=== PATIENT | female | born 1955 | race African-American/Black ===

== ENCOUNTER 2016-08-27 21:43 | Emergency (ER) | payer BC, OTHER ==
[2016-08-27 22:10] VITALS: BP 171/113; PULSE 64; TEMP 98.6; BMI 25.3
--- NOTE | 2016-08-28 00:40 | PDOC ---
History of Present Illness - General History Source: Patient Exam Limitations: No Limitations - History of Present Illness Initial Comments: 08/28/16 00:59 Patient is a 60 year old female with a significant past medical history of hypertension and panic attacks (last was in her 30s) who presents to the ED with numbness to the bilateral hands, forearms and elbows and rapid heart rate. Patient states that she was at work as she developed numbness at both of her distal upper extremities. She states that she leaned back in her chair and put her feet up as she waited for EMS. Upon the arrival of EMS she was found to her 171/92 BP with rapid HR in 100s. Patient states that she was feeling lightheaded , her mouth was dry and there was tingling around the mouth. Patient denies any diaphoresis. She denies any recent stress increase. She states that she does not usually have coffee but had coffee this morning. Patient now reports a headache. <Maria Isabel Arambula - Last Filed: 08/28/16 00:59> <Rosa Mak - Last Filed: 08/28/16 02:05> - General Chief Complaint: Weakness Stated Complaint: WEAKNESS Past History <Maria Isabel Arambula - Last Filed: 08/28/16 00:59> - Past Medical History Hypercholesterolemia: Yes - Immunization History Immunization Up to Date: Yes - Psycho/Social/Smoking Cessation Hx Suicidal Ideation: No Smoking History: Never smoked Have you smoked in the past 12 months: No Information on smoking cessation initiated: No Hx Alcohol Use: No Drug/Substance Use Hx: No <Rosa Mak - Last Filed: 08/28/16 02:05> - Past Medical History Allergies/Adverse Reactions: Allergies Allergy/AdvReac Type Severity Reaction Status Date / Time No Known Allergies Allergy Verified 08/27/16 22:03 Review of Systems - Review of Systems Able to Perform ROS?: Yes Comments:: 08/28/16 00:59 GENERAL/CONSTITUTIONAL: (+)weakness. No fever or chills. HEAD, EYES, EARS, NOSE AND THROAT: No change in vision. No ear pain or discharge. No sore throat. GASTROINTESTINAL: No nausea, vomiting, diarrhea or constipation. GENITOURINARY: No dysuria, frequency, or change in urination. CARDIOVASCULAR: No chest pain or shortness of breath. RESPIRATORY: No cough, wheezing, or hemoptysis. MUSCULOSKELETAL: No joint or muscle swelling or pain. No neck or back pain. SKIN: No rash NEUROLOGIC: (+)headahce, (+)upper extremity numbness. No vertigo, loss of consciousness, or change in strength/sensation. ENDOCRINE: No increased thirst. No abnormal weight change. HEMATOLOGIC/LYMPHATIC: No anemia, easy bleeding, or history of blood clots. ALLERGIC/IMMUNOLOGIC: No hives or skin allergy. <Maria Isabel Arambula - Last Filed: 08/28/16 00:59> *Physical Exam - Vital Signs Last Vital Signs Temp Pulse Resp BP Pulse Ox 98.6 F 64 16 171/113 100 08/27/16 22:04 08/27/16 22:04 08/27/16 22:04 08/27/16 22:04 08/27/16 22:04 - Physical Exam Comments: 08/28/16 01:00 GENERAL: Awake, alert, and fully oriented, in no acute distress HEAD: No signs of trauma EYES: PERRLA, EOMI, sclera anicteric, conjunctiva clear ENT: Auricles normal inspection, nares patent, Moist mucosa NECK: Normal ROM, supple, no lymphadenopathy, JVD, or masses LUNGS: Breath sounds equal, clear to auscultation bilaterally. No wheezes, and no crackles HEART: Regular rate and rhythm, normal S1 and S2, no murmurs, rubs or gallops ABDOMEN: Soft, nontender, normoactive bowel sounds. No guarding, no rebound. No masses EXTREMITIES: (+)Left wrist positive tenales and finkelsteins. Normal range of motion, no edema. No clubbing or cyanosis. No cords, erythema. NEUROLOGICAL: 5/5 strength, Sensation intact, Normal speech SKIN: Warm, Dry, normal turgor, no rashes or lesions noted. <Maria Isabel Arambula - Last Filed: 08/28/16 00:59> - Vital Signs Last Vital Signs Temp Pulse Resp BP Pulse Ox 98.6 F 64 16 171/113 100 08/27/16 22:04 08/27/16 22:04 08/27/16 22:04 08/27/16 22:04 08/27/16 22:04 <Rosa Mak - Last Filed: 08/28/16 02:05> Heart Score/ECG Review #1 ECG reviewed & interpreted by me at: 01:05 General ECG Interpretation: Sinus Rhythm, Normal Rate (50 bpm), Normal Intervals , No acute ischemic changes <Rosa Mak - Last Filed: 08/28/16 02:05> ED Treatment Course - LABORATORY CBC & Chemistry Diagram: 08/28/16 01:30 08/28/16 01:30 <Rosa Mak - Last Filed: 08/28/16 02:05> Medical Decision Making - Medical Decision Making 08/28/16 00:36 60 yo F with h/o htn, prior anxiety ( no attack in over 30 yrs ) here with episode of feeling tingling bilat arms, elbows down, and perioral tingling. felt heart racing, no loc. felt lightheaded. put feet on desk, and leaned back, lasted 45 min, then resolved. no cp no sob. now at baseline. did not feel weakness, but felt like she couldnot move. no fever or chills. take vytorin for bp. no leg swelling., has noted left wrist forearm tingling and pain periodically. 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 on exam, awake alert NAD facies symmetric. lungs cTAB no wheeze no crackle. abd soft NT ND. nuero CN intact, 5/5 all four ext, sensation intact througout. left wrist positive tinels and kings test. differential: anxiety attack , hyperthyroid, electrolyte abnormality, anemia dehydration dysrhtymia. plan ekg labs tsh trop if normal likely dc home with outpt follow up. carpal tunnel recommend wrist splint. <Rosa Mak - Last Filed: 08/28/16 02:05> *DC/Admit/Observation/Transfer - Attestations Scribe Attestion: 08/28/16 01:01 Documentation prepared by DIONI Chan, acting as medical record retrieval specialist for Rosa Mak MD. <Maria Isabel Arambula - Last Filed: 08/28/16 00:59> <Rosa Mak - Last Filed: 08/28/16 02:05> Diagnosis at time of Disposition: Near syncope, Heart palpitations, Carpal tunnel syndrome of left wrist - Referrals Referrals: Ayleen Gomez MD [Primary Care Provider] - - Patient Instructions Printed Discharge Instructions: Carpal Tunnel Syndrome, DI for Palpitations Additional Instructions: you should follow up with Dr. Gomez, this week to discuss further testing. call to schedule. be sure to drink plenty of fluids. return for chest pain. shortness of breath or any concerns. wear a wrist splint ( which you can buy over the counter ) on left wrist. during work and at night to help symptoms related to carpal tunnel.
[2016-08-28] MEDS ORDERED: SODIUM CHLORIDE 0.9% 1000 ML INFUS.BAG IV ONE (00:41)
[2016-08-28 01:33] LABS: BASOPHIL 0.7 % (0-2.0); EOSINOPHIL 0.8 % (0-4.5); MCH 31.4 pg (25.7-33.7); MCHC 32.7 g/dl (32.0-36.0); MEAN CELL VOLUME 95.8 fl (80-96); MEAN PLT VOLUME 10.6 fl (7.5-11.1); NEUTROPHILS 46.4 % (42.8-82.8); PLATELET COUNT 143 K/MM3 (134-434); RDW 13.6 % (11.6-15.6); WHITE BLOOD COUNT 5.3 K/mm3 (4.0-10.0)
[2016-08-28 01:56] LABS: ALBUMIN 4.2 g/dl (3.4-5.0); ANION GAP 10 (8-16); BILIRUBIN,TOTAL 0.5 mg/dL (0.2-1.0); CALCIUM 10.5 mg/dL (8.5-10.1); CO2 28 mmol/L (21-32); CREATININE 0.7 mg/dL (0.55-1.02); GLUCOSE,RANDOM 92 mg/dL (74-106); SGPT/ALT 35 U/L (12-78); TOT PROT 8.1 g/dl (6.4-8.2)
[2016-08-28 01:57] LABS: ALK PHOS 145 U/L (45-117)
[2016-08-28 02:07] LABS: SGOT/AST 33 U/L (15-37)
--- NOTE | 2016-08-28 16:26 | EKG ---
Test Reason : Blood Pressure : / mmHG Vent. Rate : 050 BPM Atrial Rate : 050 BPM P-R Int : 190 ms QRS Dur : 082 ms QT Int : 434 ms P-R-T Axes : 063 002 034 degrees QTc Int : 395 ms SINUS BRADYCARDIA POSSIBLE LEFT ATRIAL ENLARGEMENT BORDERLINE ECG WHEN COMPARED WITH ECG OF 15-SEP-2001 08:55, NO SIGNIFICANT CHANGE WAS FOUND Confirmed by CHUCHO ZHOU MD ([id number]) on 08/28/2016 4:25:32 PM Referred By: Confirmed By:CHUCHO ZHOU MD
== END 2016-08-28 02:55 | disposition home or self-care (01) ==
LOC: JER 21:43
DX: R55 Syncope and collapse (principal); R00.2 Palpitations; G56.02 Carpal tunnel syndrome, left upper limb; F41.9 Anxiety disorder, unspecified; I10 Essential (primary) hypertension
CPT/HCPCS: 36415; 80053; 84443; 85025; 93005; 93010; 99283-25

== ENCOUNTER 2019-04-03 02:41 | Emergency (ER) | payer BC, OTHER ==
[2019-04-03] MEDS ORDERED: FUROSEMIDE 40 MG/4 ML INJECTABLE VIAL ONE (02:48)
[2019-04-03 02:59] VITALS: TEMP 97.7; BMI 25.2
--- NOTE | 2019-04-03 03:25 | PDOC ---
Attending Attestation - Resident Resident Name: JayleneHarvinder - HPI HPI: 04/03/19 06:56 PT presents to the ED complaining of hoarseness and a "tight" sensation in her throat that started acutely last night. patient describes some mild odontophagia, but states that she is able to tolerates solids and liquids and ate a full dinner last night. Denies fever. Patient is status post parathyroidectomy one month ago, but reports that she was asymptomatic until yesterday.
--- NOTE | 2019-04-03 03:55 | PDOC ---
History of Present Illness - General Chief Complaint: Shortness of Breath Stated Complaint: DIFF BREATHING Time Seen by Provider: 04/03/19 03:23 Past History - Past Medical History Allergies/Adverse Reactions: Allergies Allergy/AdvReac Type Severity Reaction Status Date / Time No Known Allergies Allergy Verified 08/27/16 22:03 Home Medications: Ambulatory Orders Ezetimibe/Simvastatin [Vytorin 10-20 mg Tablet] 1 tab PO DAILY 04/03/19 Fexofenadine HCl [Hawa Allergy] 180 mg PO PRN PRN 04/03/19 COPD: No Hypercholesterolemia: Yes - Immunization History Immunization Up to Date: Yes - Psycho Social/Smoking Cessation Hx Smoking History: Never smoked Have you smoked in the past 12 months: No Information on smoking cessation initiated: No Hx Alcohol Use: No Drug/Substance Use Hx: No *Physical Exam - Vital Signs Last Vital Signs Temp Pulse Resp BP Pulse Ox 97.7 F 63 20 166/89 100 04/03/19 02:55 04/03/19 02:55 04/03/19 02:55 04/03/19 02:55 04/03/19 02:55 ED Treatment Course - LABORATORY CBC & Chemistry Diagram: 04/03/19 04:10 04/03/19 04:10 Medical Decision Making - Medical Decision Making 04/03/19 04:51 HPI: 63yo F hx seasonal allergies, HLD, hyperparathyroidism s/p parathyroidectomy ( at [facility]), tinnitus (x3wks, started Hawa per ENT 3 days ago, last took yesterday), and bradycardia with SVT (single episode 2mo ago) presents from home c/o acute onset throat tightness, choking sensation worse when lying down, cough productive of clear mucus, sore throat, hoarse voice, and difficulty breathing 2/2 throat tightness, x8hrs. Pt had surgery on 03/07/19. No complications except for tinnitus approx 1wk post-surgery. Surgeon said not due to surgery. Pt f/u with ENT and given Hawa which started for first time 3 days ago, last took 04/01/18. No hx of allergies other than season. Sx had sudden onset at 2100 04/02/18 while resting in bed, but have remained unchanged since onset. Denies hx similar sx. Denies rash, face or tongue or lip swelling, pruritus, difficulty breathing from lungs. Pt is SOB but states it is all from the throat up, not originating from the lungs. Pt tolerating PO liquids and solids, no difficulty swallowing secretions. Pts last pill was approx 24hrs prior, no difficulty getting down. Denies anything getting stuck in throat or feeling of something stuck. Endorses 3 days of b/l LE cramping intermittent, same as cramping prior to surgery. Last labs checked 2 weeks ago normal. Denies fever, chills, fatigue, headache, dizziness, numbness/tingling, weakness, vision changes, chest pain, palpitations, leg swelling, abdominal pain, blood in stool, diarrhea, constipation, nausea, vomiting, dysuria, hematuria, confusion, hx DVT/PE, estrogen or hormone use, recent travel, sick contacts, hemoptysis, leg swelling. Surgeon - Dr Jesús Puckett [facility] Cardio - [facility] PCP - Ayleen Gomez ROS: Constitutional: Negative for chills, fever, fatigue, diaphoresis. HENT: Positive for sore throat, choking sensation, hoarse voice, tight throat. Negative for rhinorrhea, postnasal drip, congestion. Eyes: Negative for visual disturbance. Respiratory: Positive for shortness of breath, cough. Negative for shortness of breath, cough, and wheezing. Cardiovascular: Negative for chest pain, palpitations, and leg swelling. Gastrointestinal: Negative for abdominal pain, blood in stool, constipation, diarrhea, nausea, and vomiting. Genitourinary: Negative for dysuria, flank pain, and hematuria. Musculoskeletal: Negative for myalgias, back pain, and neck pain. Skin: Negative for rash. Neurological: Negative for light-headedness, dizziness, vertigo, syncope, weakness, numbness and headaches. Psychiatric/Behavioral: Negative for behavioral problems and confusion. PE: Gen: Alert, NAD, comfortable-appearing. HEENT: PERRL, EOMI, MMM, NCAT. No conjunctival pallor. Sclera are non-icteric. Oropharynx is clear. Normal size uvula and epiglottis, no uvular deviation, no tonsillar edema or erythema or exudates. No swelling of face, mouth, lips, neck. No adenopathy. Small well healed surgical incision to anterior neck without erythema, discharge, bleeding, or edema. No drooling. +hoarse voice. CV: Regular rate and rhythm. No murmurs, rubs, or gallops. PULM: No resp distress. CTAB, no stridor, wheezes, rales, or rhonchi. Speaking in full sentences. ABD: soft, NT/ND, no rebound tenderness or guarding, no CVA tenderness. BACK: No TTP of c/t/l-spine. No step-offs or deformities. MSK: No bony deformities. 2+ pulses in all extremities. NEURO: AAOx3. PERRL. No gross CN deficits. Strength and sensation grossly intact throughout. EXTREMITIES: No cyanosis. No clubbing. No edema. No calf tenderness. PSYCH: Normal mood and thought pattern. SKIN: Warm and dry. Normal capillary refill. No rashes. No jaundice. MDM: 63yo F hx seasonal allergies, HLD, hyperparathyroidism s/p parathyroidectomy ( at [facility]), tinnitus (x3wks, started Hawa per ENT 3 days ago, last took yesterday), and bradycardia with SVT (single episode 2mo ago) presents from home with acute onset throat tightness, choking sensation worse when lying down , cough productive of clear mucus, sore throat, hoarse voice, and difficulty breathing 2/2 throat tightness, x8hrs (onset 2100 04/02/18 while resting in bed), unchanged since onset. Tolerating PO, no difficulty swallowing secretions. No e/o hematoma, respiratory distress, severe airway obstruction, progression of sx. Oropharynx clear and no adenopathy not indicative of strep or viral pharyngitis. No swelling of face or tongue indicative of allergic reaction or angioedema. Obtain CT neck to r/o epiglottitis, peritonsillar abscess, retropharyngeal abscess, mass/obstruction, malignancy, postsurgical complications such as abscess or hematoma or soft tissue swelling, vocal cord swelling or lesion. Also consider metabolic derangements and thyroid pathologies, possibly 2/2 surgery. Presentation and timing make postsurgical complication of recurrent laryngeal nerve injury very unlikely. No chest pain, difficulty breathing from lungs, leg swelling, calf tenderness, or PE or lung or cardiac RFs besides surgery indicative of PE or pulmonary or cardiac pathology. -EKG -CBC,CMP,Cardiac,Mg,Phos,TSH,BNP -CXR -CT neck w/IV contrast -Dispo: pending w/u 04/03/19 07:29 EKG reviewed: sinus bradycardia, 56bpm, normal intervals, normal axis, no TWIs, no ST elevations or depressions. Pt states known bradycardia. CXR reviewed: no acute pathology Labs reviewed. No concerning findings. CT neck reviewed: no concerning findings No expanding hematoma. No changes since arrival. No worsening of condition. No stridor, drooling, SOB, swelling. Tolerating PO. Pt safe for discharge at this time. Will dc home with ENT f/u. Strict return precautions given. Pt understands all dc instructions and all questions were answered. 04/03/19 16:51 CT overread and called to day team. Day team called pt: The airway is patent and symmetric without narrowing. There is no gross asymmetry of the larynx to suggest the vocal cord lesion. Normal size uvula and epiglottis. No prevertebral soft tissue swelling is identified. Minimal motion artifacts are limiting evaluation of the lower neck. There is soft tissue swelling in the lower anterior neck, at the lower thyroid level without evidence of a discrete abscess or collection. No gross enlarged lymph nodes are identified. Both orbits and included intracranial contents appear unremarkable. Moderate degenerative disc disease again seen at C5-C6, C6-C7 and to a lesser extent C7-T1 level where there is minimal anterolisthesis of C7 over T1, likely degenerative. Lung windows at the thoracic inlet appear unremarkable Impression : See discussion above. Soft tissue swelling in the lower anterior neck, at and just inferior to the level of the thyroid gland that may be postsurgical. Discharge - Discharge Information Problems reviewed: Yes Clinical Impression/Diagnosis: Sore throat, Throat tightness Condition: Stable Disposition: HOME - Admission No - Follow up/Referral Referrals: Ayleen Gomez MD [Primary Care Provider] - - Patient Discharge Instructions Additional Instructions: You have been seen in the Emergency Department for your hoarse voice and throat tightness. Your labs, EKG, chest X-ray, and CT scan of your neck show no signs of an emergent condition. The cause of your symptoms is unknown at this time, although it could be a viral infection of your throat. Stay hydrated. Follow-up with your ENT (ear, nose, throat) doctor as scheduled on Thursday - they may want to do further testing such as an endoscope (video). Return to the nearest Emergency Department immediately if you experience any new or worsening symptoms including drooling, inability to swallow your saliva or water, swelling of your tongue or mouth or neck, difficulty breathing, chest pain, or passing out. - Post Discharge Activity
[2019-04-03 04:35] LABS: BASO % 0.7 % (0-2.0); EOS % 1.8 % (0-4.5); HEMATOCRIT 42.3 % (32.4-45.2); HEMOGLOBIN 13.8 GM/dL (10.7-15.3); MCH 31.5 pg (25.7-33.7); MCHC 32.7 g/dl (32.0-36.0); MEAN CELL VOLUME 96.5 fl (80-96); MEAN PLT VOLUME 11.7 fl (7.5-11.1); MONO % 6.4 % (3.8-10.2); NEUT % 53.1 % (42.8-82.8); PLATELET COUNT 146 K/MM3 (134-434); RBC 4.39 M/mm3 (3.60-5.2); WHITE BLOOD COUNT 5.8 K/mm3 (4.0-10.0)
[2019-04-03 05:11] LABS: ALBUMIN 3.8 g/dl (3.4-5.0); ALK PHOS 119 U/L (45-117); ANION GAP 6 MMOL/L (8-16); BILIRUBIN,TOTAL 0.3 mg/dL (0.2-1); BLOOD UREA NITROGEN 11.6 mg/dL (7-18); CALCIUM 9.1 mg/dL (8.5-10.1); CHLORIDE 108 mmol/L (98-107); CO2 26 mmol/L (21-32); CREATININE 0.7 mg/dL (0.55-1.3); GLUCOSE,RANDOM 110 mg/dL (74-106); LIPASE 103 U/L (73-393); MAGNESIUM 2.2 mg/dL (1.8-2.4); PHOSPHOROUS 4.2 mg/dL (2.5-4.9); POTASSIUM 4.7 mmol/L (3.5-5.1); SGOT/AST 35 U/L (15-37); SGPT/ALT 38 U/L (13-61); SODIUM 141 mmol/L (136-145); TOT PROT 7.4 g/dl (6.4-8.2)
[2019-04-03 08:06] VITALS: BP 140/84; PULSE 57
--- NOTE | 2019-04-03 09:33 | PDOC ---
*Physical Exam - Vital Signs Last Vital Signs Temp Pulse Resp BP Pulse Ox 97.7 F 57 L 18 140/84 98 04/03/19 02:55 04/03/19 08:00 04/03/19 08:00 04/03/19 08:00 04/03/19 08:00 ED Treatment Course - LABORATORY CBC & Chemistry Diagram: 04/03/19 04:10 04/03/19 04:10 - ADDITIONAL ORDERS Additional order review: Laboratory Results 04/03/19 04:10 Sodium 141 Potassium 4.7 Chloride 108 H Carbon Dioxide 26 Anion Gap 6 L BUN 11.6 Creatinine 0.7 Est GFR (CKD-EPI)AfAm 106.87 Est GFR (CKD-EPI)NonAf 92.21 Random Glucose 110 H Calcium 9.1 Phosphorus 4.2 Magnesium 2.2 Total Bilirubin 0.3 AST 35 ALT 38 Alkaline Phosphatase 119 H Creatine Kinase 210 H Creatine Kinase Index 0.6 CK-MB (CK-2) 1.4 Troponin I < 0.02 Total Protein 7.4 Albumin 3.8 Lipase 103 TSH 3.42 04/03/19 04:10 RBC 4.39 MCV 96.5 H MCHC 32.7 RDW 14.0 MPV 11.7 H D Neutrophils % 53.1 Lymphocytes % 38.0 Monocytes % 6.4 Eosinophils % 1.8 D Basophils % 0.7 Medical Decision Making - Medical Decision Making 04/03/19 09:[address] Sosa regarding overread of CT which reads: CT scan of the neck following intravenous contrast. Contiguous axial scans were obtained followed by coronal and sagittal reconstruction images. 77 cc of Omnipaque 350 was intravenously injected Compared to prior CT scan of the neck dated 01/06/2018 The airway is patent and symmetric without narrowing. There is no gross asymmetry of the larynx to suggest the vocal cord lesion. Normal size uvula and epiglottis. No prevertebral soft tissue swelling is identified. Minimal motion artifacts are limiting evaluation of the lower neck. There is soft tissue swelling in the lower anterior neck, at the lower thyroid level without evidence of a discrete abscess or collection. No gross enlarged lymph nodes are identified. Both orbits and included intracranial contents appear unremarkable. Moderate degenerative disc disease again seen at C5-C6, C6-C7 and to a lesser extent C7-T1 level where there is minimal anterolisthesis of C7 over T1, likely degenerative. Lung windows at the thoracic inlet appear unremarkable Impression : See discussion above. Soft tissue swelling in the lower anterior neck, at and just inferior to the level of the thyroid gland that may be postsurgical. Date of prior surgery was not submitted. However, no discrete collection/abscess or abnormal enhancement is identified. Correlate clinically to determine further evaluation and follow-up. I called Ms. Douglas and let her know of the results. Pt states that she had her surgery at [facility]. I recommended very close follow up with that hospital and her surgeons there. Pt states that she feels the same as when she came in and will follow up with her surgeons there. Discharge - Discharge Information Clinical Impression/Diagnosis: Sore throat, Throat tightness Condition: Stable Disposition: HOME - Follow up/Referral Referrals: Ayleen Gomez MD [Primary Care Provider] - - Patient Discharge Instructions Additional Instructions: You have been seen in the Emergency Department for your hoarse voice and throat tightness. Your labs, EKG, chest X-ray, and CT scan of your neck show no signs of an emergent condition. The cause of your symptoms is unknown at this time, although it could be a viral infection of your throat. Stay hydrated. Follow-up with your ENT (ear, nose, throat) doctor as scheduled on Thursday - they may want to do further testing such as an endoscope (video). Return to the nearest Emergency Department immediately if you experience any new or worsening symptoms including drooling, inability to swallow your saliva or water, swelling of your tongue or mouth or neck, difficulty breathing, chest pain, or passing out. - Post Discharge Activity
--- NOTE | 2019-04-03 16:59 | EKG ---
Test Reason : Blood Pressure : / mmHG Vent. Rate : 056 BPM Atrial Rate : 056 BPM P-R Int : 178 ms QRS Dur : 080 ms QT Int : 418 ms P-R-T Axes : 060 -11 046 degrees QTc Int : 403 ms SINUS BRADYCARDIA OTHERWISE NORMAL ECG WHEN COMPARED WITH ECG OF 28-AUG-2016 01:01, NO SIGNIFICANT CHANGE WAS FOUND Confirmed by SONYA MCCORMICK MD ([id number]) on 04/03/2019 4:59:28 PM Referred By: Confirmed By:SONYA MCCORMICK MD
== END 2019-04-03 08:05 | disposition home or self-care (01) ==
LOC: JER 02:41
DX: J02.9 Acute pharyngitis, unspecified (principal); H93.19 Tinnitus, unspecified ear; Z98.890 Other specified postprocedural states; E89.2 Postprocedural hypoparathyroidism; E78.5 Hyperlipidemia, unspecified; Z87.09 Personal history of other diseases of the respiratory system
CPT/HCPCS: 36415; 70491-TC; 71045-TC-FY; 80053; 82550; 82553; 83690; 83735; 84100; 84443; 84484; 85025; 93005; 93010; 99284-25; Q9967

== ENCOUNTER 2019-06-01 18:24 | Inpatient (IN) | payer BC, OTHER ==
[2019-06-01] MEDS ORDERED: METOCLOPRAMIDE HCL INJECTION 10 MG/2 ML VIAL IVPUSH ONE (21:08)
--- NOTE | 2019-06-01 21:16 | PDOC ---
History of Present Illness - General Chief Complaint: Lightheaded Stated Complaint: SENT BY DOCTOR Time Seen by Provider: 06/01/19 20:54 History Source: Patient Exam Limitations: No Limitations - History of Present Illness Initial Comments: 06/01/19 21:09 63 yo female pmh HLD and s/p parathyroidectomy (02/2019) for hyperparathyroidsm presents to the ED for 1 week of severe and persistent dizziness, N/V. Pt states since her surgery, she has had persistent tinnitus and over the last week has become severely dizzy with feelings of the room spinning around her, nausea and today, pt woke up at 3 am (went to sleep at 11 pm) with persistent stated symptoms along with left arm numbness and tingling. Pt saw PCP last week , has been taking 25 mg QID Meclizine over the past 1 week and states the meclizine is making her worse. Pt also saw an ENT Doctor yesterday, exam done, pt reports ENT believes it is an inner ear problem but can not localize it to 1 ear. Today, the dizziness is persistent today, unable to walk straight due to ataxia. Pt called PCP Jason and told pt to go to the ER. Past History - Past Medical History Allergies/Adverse Reactions: Allergies Allergy/AdvReac Type Severity Reaction Status Date / Time No Known Allergies Allergy Verified 06/01/19 18:37 Home Medications: Ambulatory Orders Alprazolam 0.25 mg PO TID PRN 06/01/19 Ezetimibe/Simvastatin [Ezetimibe-Simvastatin 10-20 mg] 1 tab PO DAILY 06/01/19 Meclizine HCl 25 mg PO QID 06/01/19 Cardiac Disorders: Yes (SVT) COPD: No Hypercholesterolemia: Yes Seizures: Yes (PARATHYROID DISEASE) - Immunization History Immunization Up to Date: Yes - Psycho Social/Smoking Cessation Hx Smoking History: Never smoked Have you smoked in the past 12 months: No Information on smoking cessation initiated: No Hx Alcohol Use: No Drug/Substance Use Hx: No Review of Systems - Review of Systems Constitutional: No: Chills, Fever HEENTM: Yes: Tinnitus. No: Double Vision Respiratory: No: Shortness of Breath Cardiac (ROS): No: Chest Pain ABD/GI: Yes: Nausea, Vomiting. No: Constipated, Diarrhea : No: Burning, Dysuria, Flank Pain, Hematuria Neurological: Yes: Numbness, Paresthesia, Unsteady Gait, Ataxia. No: Headache, Weakness *Physical Exam - Vital Signs Last Vital Signs Temp Pulse Resp BP Pulse Ox 97.9 F 62 18 178/97 H 100 06/01/19 18:31 06/01/19 18:31 06/01/19 18:31 06/01/19 18:31 06/01/19 18:31 - Physical Exam General Appearance: Yes: Nourished, Appropriately Dressed. No: Apparent Distress HEENT: positive: EOMI Neck: positive: Supple. negative: Carotid bruit Respiratory/Chest: positive: Lungs Clear, Normal Breath Sounds. negative: Respiratory Distress, Accessory Muscle Use, Rapid RR, Crackles, Rales, Rhonchi, Stridor, Wheezing Cardiovascular: positive: Regular Rhythm, Regular Rate, S1, S2. 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 negative: Facial Droop, Numbness, Sensory Deficit, Finger to Nose, Confused, Disoriented, Depressed Affect ED Treatment Course - LABORATORY CBC & Chemistry Diagram: 06/01/19 23:00 06/01/19 23:00 - RADIOLOGY Radiology Studies Ordered: Category Date Time Status HEAD CT WITHOUT CONTRAST [CT] Stat CT Scan 06/01/19 21:07 Ordered CHEST X-RAY PORTABLE* [RAD] Stat Radiology 06/01/19 21:07 Ordered Medical Decision Making - Medical Decision Making 06/02/19 00:53 63 yo female pmh HLD and s/p parathyroidectomy (02/2019) for hyperparathyroidsm presents to the ED for 1 week of severe and persistent dizziness, N/V. Pt states since her surgery, she has had persistent tinnitus and over the last week has become severely dizzy with feelings of the room spinning around her, nausea and today, pt woke up at 3 am (went to sleep at 11 pm) with persistent stated symptoms along with left arm numbness and tingling. Pt saw PCP last week , has been taking 25 mg QID Meclizine over the past 1 week and states the meclizine is making her worse. Pt also saw an ENT Doctor yesterday, exam done, pt reports ENT believes it is an inner ear problem but can not localize it to 1 ear. Today, the dizziness is persistent today, unable to walk straight due to ataxia. Pt called PCP Jason and told pt to go to the ER. vitals show elevated BP pt is persistently ataxic after multiple medications including reglan and ativan CT head neg for acute disease Pt requires admission for MRI and Neuro f/u 06/02/19 00:58 Microblog sent Discharge - Discharge Information Clinical Impression/Diagnosis: Vertigo Condition: Fair - Follow up/Referral Referrals: Ayleen Gomez MD [Primary Care Provider] - - Patient Discharge Instructions - Post Discharge Activity
[2019-06-01 22:41] LABS: EPI CELLS 0.5 /HPF (0-5/HPF); HYALINE CASTS 0 /lpf (0-8); PH,URINE 6.5 (5.0-8.0); URINE APPEARANCE CLEAR; URINE BACTERIA 3.3 /hpf (NEGATIVE); URINE BILIRUBIN NEGATIVE (NEGATIVE); URINE COLOR YELLOW; URINE GLUCOSE (UA) NEGATIVE (NEGATIVE); URINE KETONE NEGATIVE (NEGATIVE); URINE LEUK ESTERASE TRACE (NEGATIVE); URINE NITRITE NEGATIVE (NEGATIVE); URINE PROTEIN NEGATIVE (NEGATIVE); URINE RBC 1 /hpf (0-4); URINE UROBILINOGEN 0.2 mg/dL (0.2-1.0); URINE WBC 0 /hpf (0-5)
[2019-06-01] MEDS ORDERED: METOCLOPRAMIDE HCL INJECTION 10 MG/2 ML VIAL ONE (22:54)
--- NOTE | 2019-06-01 23:08 | PDOC ---
Documentation entered by Livan Mccarthy SCRIBE, acting as scribe for Mer Rodriguez DO. Mer Rodriguez DO: This documentation has been prepared by the Shari ascencio Xhesika, SCRIBE, under my direction and personally reviewed by me in its entirety. I confirm that the documentation accurately reflects all work, treatment, procedures, and medical decision making performed by me. Attending Attestation - Resident Resident Name: Yemi Hernadez - ED Attending Attestation I have performed the following: I have examined & evaluated the patient, The case was reviewed & discussed with the resident, I agree w/resident's findings & plan, Exceptions are as noted - HPI HPI: 06/01/19 23:08 The patient is a 63 year old female with a significant PMH of HLD and s/p parathyroidectomy (02/2019) who presents to the emergency department for 1 week of persistent "room spinning" dizziness/ vertigo. Pt states she had URI symptoms 1 month ago. Pt reports 1 week of tinnitus, followed up with ENT and was told it was an inner ear issue. Pt saw PCP last week, has been taking 25 mg QID Meclizine with no improvement of symptoms. The patient denies chest pain, shortness of breath. Denies fever, chills, cough , nausea, vomiting, diarrhea and constipation. Denies dysuria, frequency, urgency and hematuria. Allergies: NKDA - Physicial Exam PE: 06/01/19 23:09 GENERAL: Awake, alert, and fully oriented, in no acute distress HEAD: No signs of trauma EYES: PERRLA, EOMI, sclera anicteric, conjunctiva clear ENT: Auricles normal inspection, hearing grossly normal, nares patent, oropharynx clear without exudates. Moist mucosa NECK: Normal ROM, supple, no lymphadenopathy, JVD, or masses LUNGS: Breath sounds equal, clear to auscultation bilaterally. No wheezes, and no crackles HEART: Regular rate and rhythm, normal S1 and S2, no murmurs, rubs or gallops ABDOMEN: Soft, nontender, normoactive bowel sounds. No guarding, no rebound. No masses EXTREMITIES: Normal range of motion, no edema. No clubbing or cyanosis. No cords, erythema, or tenderness NEUROLOGICAL: Cranial nerves II through XII grossly intact. SKIN: Warm, Dry, normal turgor, no rashes lesions noted. - Medical Decision Making 06/01/19 23:02 I, Dr. Mer Rodriguez, DO, attest that this document has been prepared under my direction and personally reviewed by me in its entirety. I further attest, that it accurately reflects all work, treatment, procedures and medical decision -making performed by me. a/p: 63yo female with parathyroidectomy in february with a week of dizziness -suspect vertigo -pt has been on meclizine without improvement, saw ENT -neuro intact, but off balance when she walks, vertiginous with change in position -will send labs, ekg, head ct -will monitor and reassess -pt speaking in clear sentences, muscle strength 5/5 Ue and LE 06/01/19 23:[address] without acute findings labs pending will give reglan 06/01/19 23:57 labs reviewed 06/02/19 00:37 pt with persistent vertigo unable to ambulate pt willing to stay for further eval pmd dr. jacobs head ct without acute findings, will add ativan 06/02/19 01:05 case discussed with CLARITZA Ontiveros who accepts pt service Discharge - Discharge Information Problems reviewed: Yes Clinical Impression/Diagnosis: Vertigo Condition: Fair - Admission Yes - Follow up/Referral Referrals: Ayleen Jacobs MD [Primary Care Provider] - - Patient Discharge Instructions - Post Discharge Activity Heart Score/ECG Review - ECG Intrepretation Comment:: 06/01/19 23:33 sinus jamia at 53, nl axis, nl interval, no acute st/t wave findings
[2019-06-01 23:12] LABS: EOS % 1.9 % (0-4.5); HEMATOCRIT 45.5 % (32.4-45.2); HEMOGLOBIN 14.9 GM/dL (10.7-15.3); LYMPH % 54.8 % (8-40); MCH 31.6 pg (25.7-33.7); MCHC 32.9 g/dl (32.0-36.0); MEAN CELL VOLUME 96.2 fl (80-96); MEAN PLT VOLUME 11.5 fl (7.5-11.1); MONO % 6.4 % (3.8-10.2); NEUT % 35.9 % (42.8-82.8); PLATELET COUNT 164 K/MM3 (134-434); RBC 4.73 M/mm3 (3.60-5.2); RDW 13.8 % (11.6-15.6); WHITE BLOOD COUNT 5.2 K/mm3 (4.0-10.0)
[2019-06-01 23:29] LABS: INR 0.99 (0.83-1.09); PROTHROMBIN TIME (PATIENT) 11.7 SEC (9.7-13.0)
[2019-06-01 23:32] LABS: ACTIVATED PTT 39.5 SECONDS (25.2-36.5)
[2019-06-01 23:54] LABS: BILIRUBIN,TOTAL 0.6 mg/dL (0.2-1); BLOOD UREA NITROGEN 8.4 mg/dL (7-18); CALCIUM 9.5 mg/dL (8.5-10.1); CREATININE 0.8 mg/dL (0.55-1.3); POTASSIUM 3.9 mmol/L (3.5-5.1)
[2019-06-02] MEDS ORDERED: LORazepam 2 MG/ML SDV VIAL ONE (01:03)
--- NOTE | 2019-06-02 01:22 | HP ---
Admitting History and Physical - Primary Care Physician PCP: Ayleen Gomez - Admission Chief Complaint: Dizziness, Unsteady Gait History of Present Illness: This is a 63 y/o female with a PMHx of HTN, HLD. Who presents to the ED with increased dizziness and unsteady gait. Patient is being treated for Vertigo by her PCP on Meclizine. Patient reports, normally she is ambulatory without assistance, now requires a cane for gait stability.Patient reports having head pressure, with tinnitus. Patient reports having numbness both arms intermittently. Patient reports that the patient had a recent Brain MRI 2 weeks ago- neg ICH, no mass or lesions. Patient's denies patient having recent fall or trauma. Patient's denies patient having slurred speech, facial droop. Patient denies having fever, chills, cough, SOB, CP, palpitations, AP, vomiting, diarrhea, constipation, dysuria. 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 Cardiovascular: Yes: HTN, Hyperlipdemia - Past Surgical History Additional Past Surgical History: Parathyroid - Smoking History Smoking history: Never smoked Have you smoked in the past 12 months: No - Alcohol/Substance Use Hx Alcohol Use: No History of Substance Use: reports: None - Social History Usual Living Arrangement: Yes: With Spouse ADL: Independent History of Recent Travel: No Home Medications - Allergies Allergies/Adverse Reactions: Allergies Allergy/AdvReac Type Severity Reaction Status Date / Time No Known Allergies Allergy Verified 06/01/19 18:37 - Home Medications Home Medications: Ambulatory Orders Alprazolam 0.25 mg PO TID PRN 06/01/19 Ezetimibe/Simvastatin [Ezetimibe-Simvastatin 10-20 mg] 1 tab PO DAILY 06/01/19 Meclizine HCl 25 mg PO QID 06/01/19 Family Medical History Family History: Unremarkable Review of Systems - Review of Systems Constitutional: reports: Weakness Eyes: reports: Blurred Vision HENT: reports: No Symptoms Neck: reports: No Symptoms Cardiovascular: reports: No Symptoms Respiratory: reports: No Symptoms Gastrointestinal: reports: Nausea Genitourinary: reports: No Symptoms Breasts: reports: No Symptoms Reported Musculoskeletal: reports: No Symptoms Integumentary: reports: No Symptoms Neurological: reports: Dizziness, Headache, Incoordination, Numbness, Parasthesia, Unsteady Gait, Weakness Endocrine: reports: No Symptoms Hematology/Lymphatic: reports: No Symptoms Psychiatric: reports: No Symptoms Physical Examination Vital Signs: Vital Signs Temperature 97.9 F 06/01/19 18:31 Pulse Rate 62 06/01/19 18:31 Respiratory Rate 18 06/01/19 18:31 Blood Pressure 178/97 H 06/01/19 18:31 O2 Sat by Pulse Oximetry (%) 100 06/01/19 18:31 Constitutional: Yes: No Distress, Calm Eyes: Yes: Other (nystagmus) HENT: Yes: WNL, Atraumatic, Normocephalic Neck: Yes: WNL, Supple, Trachea Midline Cardiovascular: Yes: Regular Rate and Rhythm, S1, S2 Respiratory: Yes: WNL, Regular, CTA Bilaterally Gastrointestinal: Yes: WNL, Normal Bowel Sounds, Soft. No: Tenderness, Tenderness, Epigastrium ...Rectal Exam: Yes: Deferred Renal/: Yes: WNL Breast(s): Yes: WNL Musculoskeletal: Yes: Muscle Weakness Extremities: Yes: WNL Edema: No Peripheral Pulses WNL: Yes Neurological: Yes: Numbness, Weakness ...Motor Strength: LUE (3/5), LLE (4/5), RUE (5/5), RLE (5/5) Psychiatric: Yes: Alert, Oriented Labs: CBC, BMP 06/01/19 23:00 06/01/19 23:00 Laboratory Results - last 24 hr 06/01/19 06/01/19 06/01/19 22:10 23:00 23:00 WBC RBC Hgb Hct MCV MCH MCHC RDW Plt Count MPV Absolute Neuts (auto) Neutrophils % Lymphocytes % Monocytes % Eosinophils % Basophils % Nucleated RBC % PT with INR 11.70 INR 0.99 PTT (Actin FS) 39.5 H Sodium Potassium Chloride Carbon Dioxide Anion Gap BUN Creatinine Est GFR (CKD-EPI)AfAm Est GFR (CKD-EPI)NonAf Random Glucose Calcium Phosphorus Magnesium Total Bilirubin AST ALT Alkaline Phosphatase Creatine Kinase 185 Creatine Kinase Index 0.6 CK-MB (CK-2) 1.2 Troponin I < 0.02 Total Protein Albumin TSH Urine Color Yellow Urine Appearance Clear Urine pH 6.5 Ur Specific [place] 1.010 Urine Protein Negative Urine Glucose (UA) Negative Urine Ketones Negative Urine Blood Negative Urine Nitrite Negative Urine Bilirubin Negative Urine Urobilinogen 0.2 Ur Leukocyte Esterase Trace Urine WBC (Auto) 0 Urine RBC (Auto) 1 Urine Casts (Auto) 0 U Epithel Cells (Auto) 0.5 Urine Bacteria (Auto) 3.3 06/01/19 06/01/19 23:00 23:00 WBC 5.2 RBC 4.73 Hgb 14.9 Hct 45.5 H MCV 96.2 H MCH 31.6 MCHC 32.9 RDW 13.8 Plt Count 164 D MPV 11.5 H Absolute Neuts (auto) 1.9 Neutrophils % 35.9 L D Lymphocytes % 54.8 H D Monocytes % 6.4 Eosinophils % 1.9 D Basophils % 1.0 Nucleated RBC % 0 PT with INR INR PTT (Actin FS) Sodium 142 Potassium 3.9 Chloride 108 H Carbon Dioxide 28 Anion Gap 6 L BUN 8.4 Creatinine 0.8 Est GFR (CKD-EPI)AfAm 90.94 Est GFR (CKD-EPI)NonAf 78.46 Random Glucose 98 Calcium 9.5 Phosphorus Magnesium Total Bilirubin 0.6 AST 16 ALT 23 Alkaline Phosphatase 116 Creatine Kinase Creatine Kinase Index CK-MB (CK-2) Troponin I Total Protein 8.0 Albumin 4.0 TSH Urine Color Urine Appearance Urine pH Ur Specific [place] Urine Protein Urine Glucose (UA) Urine Ketones Urine Blood Urine Nitrite Urine Bilirubin Urine Urobilinogen Ur Leukocyte Esterase Urine WBC (Auto) Urine RBC (Auto) Urine Casts (Auto) U Epithel Cells (Auto) Urine Bacteria (Auto) Intake & Output 05/30/19 05/31/19 06/01/19 06/02/19 23:59 23:59 23:59 23:59 Weight 69.853 kg Current Medications Generic Name Dose Route Start Last Admin Trade Name Freq PRN Reason Stop Dose Admin Alprazolam 0.25 mg 06/02/19 09:04 Xanax - PO TID PRN ANXIETY Aspirin 81 mg 06/02/19 10:00 Asa - PO DAILY CATE Atorvastatin Calcium 10 mg 06/02/19 22:00 Lipitor - PO HS CATE Ezetimibe 10 mg 06/02/19 22:00 Zetia - PO HS [facility] Heparin Sodium (Porcine) 5,000 unit 06/02/19 10:00 Heparin - SQ BID CATE Dextrose/Sodium Chloride 1,000 mls @ 42 mls/hr 06/02/19 01:15 06/02/19 07:19 D5-1/2ns - IV Not Given ASDIR CATE Meclizine HCl 25 mg 06/02/19 10:00 Antivert - PO QID CATE Imaging - Results Cat Scan: Image Reviewed MRI: Pending Problem List - Problems (1) Vertigo Assessment/Plan: Likely acute flare r/o Stroke, Malignancy, MS Head CT reviewed Patient reports having Brain MRI 2 weeks ago, will need to obtain report for comparison Appreciate Neurology consult Monitor lytes, K 3.4, repleted Neurochecks Orthostatics Gentle IVF Monitor vitals Fall Precautions Consider PT, STR for gait stability and conditioning Ativan prn Code(s): R42 - DIZZINESS AND GIDDINESS (2) Near syncope Assessment/Plan: see above Appreciate Cardiology consult Echo Carotid doppler image reviewed Code(s): R55 - SYNCOPE AND COLLAPSE (3) Ataxia Assessment/Plan: Fall Precautions Consider PT eval Monitor CBC, BMP Monitor vitals Code(s): R27.0 - ATAXIA, UNSPECIFIED (4) HTN (hypertension) Assessment/Plan: stable Continue home meds Monitor renal function Code(s): I10 - ESSENTIAL (PRIMARY) HYPERTENSION (5) HLD (hyperlipidemia) Assessment/Plan: stable Continue Statin Monitor LFTs Code(s): E78.5 - HYPERLIPIDEMIA, UNSPECIFIED Assessment/Plan This is a 63 y/o female with a PMHx of HTN, HLD. Admitted for Vertigo, Near Syncope for further evaluation of their emergent condition. Plan: See Problem List FEN D51/2NS@42ml/hr Replete lytes prn NPO DVT ppx OOB SCDs Heparin SQ Dispo: Requires Inpatient Care Visit type - Emergency Visit Emergency Visit: Yes ED Registration Date: 06/01/19 Care time: The patient presented to the Emergency Department on the above date and was hospitalized for further evaluation of their emergent condition. - New Patient This patient is new to me today: Yes Date on this admission: 06/02/19 - Critical Care Critical Care patient: No
[2019-06-02 07:02] LABS: BASO % 0.8 % (0-2.0); EOS % 2.4 % (0-4.5); HEMATOCRIT 44.7 % (32.4-45.2); HEMOGLOBIN 14.9 GM/dL (10.7-15.3); LYMPH % 56.7 % (8-40); MCHC 33.4 g/dl (32.0-36.0); MEAN CELL VOLUME 95.9 fl (80-96); MEAN PLT VOLUME 10.7 fl (7.5-11.1); MONO % 7.4 % (3.8-10.2); NEUT % 32.7 % (42.8-82.8); PLATELET COUNT 139 K/MM3 (134-434); RBC 4.66 M/mm3 (3.60-5.2); RDW 13.7 % (11.6-15.6); WHITE BLOOD COUNT 3.7 K/mm3 (4.0-10.0)
[2019-06-02 07:16] LABS: ALBUMIN 3.8 g/dl (3.4-5.0); BILIRUBIN,TOTAL 0.7 mg/dL (0.2-1); BLOOD UREA NITROGEN 8.3 mg/dL (7-18); CALCIUM 9.2 mg/dL (8.5-10.1); CREATININE 0.7 mg/dL (0.55-1.3); MAGNESIUM 2.6 mg/dL (1.8-2.4); PHOSPHOROUS 3.6 mg/dL (2.5-4.9); POTASSIUM 4.1 mmol/L (3.5-5.1); TOT PROT 7.5 g/dl (6.4-8.2)
[2019-06-02] MEDS: DEXTROSE 5%-0.45% SALINE 1,000 ML IV SCH (07:19)
--- NOTE | 2019-06-02 08:43 | PN ---
Progress Note, Physician - Current Medication List Current Medications: Active Medications Atorvastatin Calcium (Lipitor -) 10 mg PO HS CATE Ezetimibe (Zetia -) 10 mg PO HS CATE Heparin Sodium (Porcine) (Heparin -) 5,000 unit SQ BID CATE Dextrose/Sodium Chloride (D5-1/2ns -) 1,000 mls @ 42 mls/hr IV ASDIR CATE Last Admin: 06/02/19 07:19 Dose: Not Given Documented by: - Objective Vital Signs: Vital Signs Temperature 97.8 F 06/02/19 07:10 Pulse Rate 52 L 06/02/19 08:00 Respiratory Rate 20 06/02/19 08:00 Blood Pressure 115/71 06/02/19 08:00 O2 Sat by Pulse Oximetry (%) 98 06/02/19 08:00 Cardiovascular: Yes: Regular Rate and Rhythm Respiratory: Yes: Regular, CTA Bilaterally Gastrointestinal: Yes: Normal Bowel Sounds, Soft Edema: No Labs: CBC, BMP 06/02/19 05:32 06/02/19 06:00 INR, PTT INR 0.99 (0.83-1.09) 06/01/19 23:00 Problem List - Problems (1) TIA (transient ischemic attack) Assessment/Plan: MRI/MRA NEURO STATIN ASA Code(s): G45.9 - TRANSIENT CEREBRAL ISCHEMIC ATTACK, UNSPECIFIED (2) HLD (hyperlipidemia) Assessment/Plan: ON STATIN Code(s): E78.5 - HYPERLIPIDEMIA, UNSPECIFIED (3) HTN (hypertension) Assessment/Plan: MONITOR Code(s): I10 - ESSENTIAL (PRIMARY) HYPERTENSION (4) Vertigo Assessment/Plan: MECLIZINE XANAX ORTHOST BP Code(s): R42 - DIZZINESS AND GIDDINESS
[2019-06-02] MEDS ORDERED: ALPRAZolam 0.25 MG TABLET PO PRN (09:04)
[2019-06-02] MEDS ORDERED: ASPIRIN 81 MG CHEWABLE TABLETS ONE (09:42)
[2019-06-02] MEDS ORDERED: MECLIZINE HCL 25 MG TABLET (FP) ONE ×2 (09:43→14:37)
[2019-06-02] MEDS ORDERED: HEPARIN NA (PORCINE) 5,000 UNITS/ML 1ML VIAL ONE (09:43)
[2019-06-02] MEDS: HEPARIN NA (PORCINE) 5,000 UNITS/ML 1ML VIAL SQ SCH ×2 (09:57→21:55)
[2019-06-02] MEDS: MECLIZINE HCL 25 MG TABLET (FP) PO SCH ×3 (09:57→21:55)
[2019-06-02] MEDS: ASPIRIN 81 MG CHEWABLE TABLETS PO SCH (09:57)
[2019-06-02] MEDS ORDERED: PATIENT'S OWN MEDICATION (NON-FORMULARY) (Ezetimibe/Simvastatin [Ezetimibe-Simvastatin 10- PO SCH (10:00)
--- NOTE | 2019-06-02 13:59 | EKG ---
Test Reason : Blood Pressure : / mmHG Vent. Rate : 052 BPM Atrial Rate : 052 BPM P-R Int : 176 ms QRS Dur : 082 ms QT Int : 448 ms P-R-T Axes : 060 -14 037 degrees QTc Int : 416 ms SINUS BRADYCARDIA POSSIBLE LEFT ATRIAL ENLARGEMENT BORDERLINE ECG WHEN COMPARED WITH ECG OF 01-JUN-2019 23:21, NO SIGNIFICANT CHANGE WAS FOUND Confirmed by CHUCHO ZHOU MD ([id number]) on 06/02/2019 1:58:34 PM Referred By: Confirmed By:CHUCHO ZHOU MD
--- NOTE | 2019-06-02 14:00 | EKG ---
Test Reason : Blood Pressure : / mmHG Vent. Rate : 053 BPM Atrial Rate : 053 BPM P-R Int : 186 ms QRS Dur : 084 ms QT Int : 442 ms P-R-T Axes : 067 -08 040 degrees QTc Int : 414 ms SINUS BRADYCARDIA POSSIBLE LEFT ATRIAL ENLARGEMENT BORDERLINE ECG WHEN COMPARED WITH ECG OF 03-APR-2019 03:34, NO SIGNIFICANT CHANGE WAS FOUND Confirmed by CHUCHO ZHOU MD ([id number]) on 06/02/2019 2:00:17 PM Referred By: Confirmed By:CHUCHO ZHOU MD
[2019-06-02 16:12] VITALS: BMI 25.4
--- NOTE | 2019-06-02 20:58 | CONSULT ---
Consult - text type - Consultation Consultation Note: NEUROLOGY CONSULTATION is greatly appreciated: Events reviewed, patient examined. 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 Seen by me many years ago for recurrent syncope. SVT discovered and treated for many years, now off meds. Status post parathyroidectomy, 03/07/19. One week later had onset of tinnitus. 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 Onset dizziness described as room spinning upon awakening times 3 weeks. Would improve in 10-15 minutes. Had MRI of the brain one week ago as outpatient- normal (upright imaging). Now three days of persistent, positional, vertigo with transient nausea with unsteadiness requiring cane. CT of head (reviewed): early calcification of the basal ganglia and two small parafalcine meningiomas General Physical Examination: no bruits, cor regular Neurological: MS/Speech; normal CN: II-XII normal without nystagmus, hears 256 Hz Motor: no drift or tremor, normal strength tone and bulk, normal reflexes, toes downgoing Coordination: no FTN dystaxia Sensation: normal Gait: normal IMPRESSION: normal neurological examination positional vertigo due to labyrinthitis Plan: review outpatient MRI Okay to feed normal diet I have encouraged the patient to continue meclizine 25mg q8hrs until vertigo subsides. Neuro followup as outpatient. Thank you very much, Mervin Srivastava MD
[2019-06-02] MEDS: ATORVASTATIN CA 10 MG TABLET (FP) PO SCH ×2 (21:55→21:59)
[2019-06-02] MEDS: EZETIMIBE 10 MG TABLET (FP) PO SCH ×2 (21:56→22:02)
[2019-06-03] MEDS: DEXTROSE 5%-0.45% SALINE 1,000 ML IV SCH (02:40)
[2019-06-03 08:42] LABS: BASO % 1.1 % (0-2.0); HEMATOCRIT 41.6 % (32.4-45.2); HEMOGLOBIN 14.1 GM/dL (10.7-15.3); LYMPH % 63.3 % (8-40); MCH 32.2 pg (25.7-33.7); MCHC 33.8 g/dl (32.0-36.0); MEAN CELL VOLUME 95.2 fl (80-96); MONO % 7.2 % (3.8-10.2); NEUT % 26.4 % (42.8-82.8); PLATELET COUNT 146 K/MM3 (134-434); RBC 4.37 M/mm3 (3.60-5.2); RDW 13.4 % (11.6-15.6); WHITE BLOOD COUNT 3.1 K/mm3 (4.0-10.0)
[2019-06-03] MEDS: ASPIRIN 81 MG CHEWABLE TABLETS PO SCH (09:14)
[2019-06-03] MEDS: HEPARIN NA (PORCINE) 5,000 UNITS/ML 1ML VIAL SQ SCH ×2 (09:14→21:12)
[2019-06-03] MEDS: MECLIZINE HCL 25 MG TABLET (FP) PO SCH ×4 (09:14→21:12)
[2019-06-03 10:42] LABS: ANISOCYTOSIS 1+; MACROCYTOSIS 1+; OVALOCYTE 1+; PLATELET ESTIMATE DECREASED
--- NOTE | 2019-06-03 15:45 | PN ---
Progress Note, Physician Chief Complaint: dizziness unsteady gait History of Present Illness: 63 year old female with PMH HTN, HLD presents to the ED with dizziness and unsteady gait. she has been evaluated by neurology. - Current Medication List Current Medications: Active Medications Alprazolam (Xanax -) 0.25 mg PO TID PRN PRN Reason: ANXIETY Aspirin (Asa -) 81 mg PO DAILY [facility] Last Admin: 06/03/19 09:14 Dose: 81 mg Documented by: Heparin Sodium (Porcine) (Heparin -) 5,000 unit SQ BID [facility] Last Admin: 06/03/19 09:14 Dose: 5,000 unit Documented by: Dextrose/Sodium Chloride (D5-1/2ns -) 1,000 mls @ 42 mls/hr IV ASDIR [facility] Last Admin: 06/03/19 02:40 Dose: 42 mls/hr Documented by: Meclizine HCl (Antivert -) 25 mg PO QID [facility] Last Admin: 06/03/19 13:53 Dose: 25 mg Documented by: - Objective Vital Signs: Vital Signs Temperature 98.2 F 06/03/19 14:27 Pulse Rate 57 L 06/03/19 14:27 Respiratory Rate 20 06/03/19 14:27 Blood Pressure 126/67 06/03/19 14:27 O2 Sat by Pulse Oximetry (%) 97 06/02/19 21:00 Constitutional: Yes: Well Nourished, No Distress HENT: Yes: Atraumatic, Normocephalic Neck: Yes: Supple Cardiovascular: Yes: Regular Rate and Rhythm Respiratory: Yes: Regular, CTA Bilaterally Gastrointestinal: Yes: Normal Bowel Sounds, Soft Genitourinary: Yes: WNL Extremities: Yes: WNL Neurological: Yes: Alert, Oriented Labs: CBC, BMP 06/03/19 08:09 06/02/19 06:00 INR, PTT INR 0.99 (0.83-1.09) 06/01/19 23:00 Problem List - Problems (1) Vertigo Assessment/Plan: neuro consult appreciated does not require another MRI at this time dc planning for thursday Code(s): R42 - DIZZINESS AND GIDDINESS (2) Bradycardia Assessment/Plan: chronic Code(s): R00.1 - BRADYCARDIA, UNSPECIFIED (3) HLD (hyperlipidemia) Assessment/Plan: chronic takes simvastatin at home dc lipitor and zetia check lipid profile Code(s): E78.5 - HYPERLIPIDEMIA, UNSPECIFIED (4) HTN (hypertension) Assessment/Plan: diet controlled Code(s): I10 - ESSENTIAL (PRIMARY) HYPERTENSION
[2019-06-04] MEDS: MECLIZINE HCL 25 MG TABLET (FP) PO SCH (09:15)
[2019-06-04] MEDS: ASPIRIN 81 MG CHEWABLE TABLETS PO SCH (09:15)
[2019-06-04] MEDS: HEPARIN NA (PORCINE) 5,000 UNITS/ML 1ML VIAL SQ SCH (09:18)
--- NOTE | 2019-06-04 10:10 | DS ---
Physical Examination Vital Signs: Vital Signs Temperature 97.8 F 06/04/19 05:01 Pulse Rate 57 L 06/04/19 05:01 Respiratory Rate 20 06/04/19 05:01 Blood Pressure 137/76 06/04/19 05:01 O2 Sat by Pulse Oximetry (%) 96 06/03/19 21:00 Cardiovascular: Yes: Regular Rate and Rhythm Respiratory: Yes: Regular, CTA Bilaterally Gastrointestinal: Yes: Normal Bowel Sounds, Soft Neurological: Yes: Alert, Oriented. No: Facial Droop, Lethargy Labs: CBC, BMP 06/03/19 08:09 06/02/19 06:00 Discharge Summary Problems reviewed: Yes Reason For Visit: VERTIGO Current Active Problems Ataxia (Acute) Bradycardia (Acute) HLD (hyperlipidemia) (Acute) HTN (hypertension) (Acute) TIA (transient ischemic attack) (Acute) Vertigo (Acute) Hospital Course: - Problems (1) Vertigo Assessment/Plan: neuro consult appreciated does not require another MRI at this time dc planning for thursday Code(s): R42 - DIZZINESS AND GIDDINESS (2) Bradycardia Assessment/Plan: chronic Code(s): R00.1 - BRADYCARDIA, UNSPECIFIED (3) HLD (hyperlipidemia) Assessment/Plan: chronic takes simvastatin at home dc lipitor and zetia check lipid profile Code(s): E78.5 - HYPERLIPIDEMIA, UNSPECIFIED (4) HTN (hypertension) Assessment/Plan: diet controlled Code(s): I10 - ESSENTIAL (PRIMARY) HYPERTENSION Condition: Improved - Instructions Referrals: Ayleen Gomez MD [Primary Care Provider] - Disposition: HOME - Home Medications Comprehensive Discharge Medication List: Ambulatory Orders Alprazolam 0.25 mg PO TID PRN 06/01/19 Ezetimibe/Simvastatin [Ezetimibe-Simvastatin 10-20 mg] 1 tab PO DAILY 06/01/19 Meclizine HCl 25 mg PO QID 06/01/19 Aspirin [ASA -] 81 mg PO DAILY tab.chew 06/04/19
[2019-06-04 10:26] VITALS: BP 124/74; PULSE 62; TEMP 97.9
== END 2019-06-04 13:04 | disposition home or self-care (01) | DRG 69 ==
LOC: JER 18:24 → JERBED 06-02 00:39 → J6S 06-02 15:38
PROVIDERS: ADMIT Family Medicine; ATTEND Family Medicine
DX: G45.9 Transient cerebral ischemic attack, unspecified (principal); H83.09 Labyrinthitis, unspecified ear; R55 Syncope and collapse; I10 Essential (primary) hypertension; E78.5 Hyperlipidemia, unspecified; H93.19 Tinnitus, unspecified ear; R27.0 Ataxia, unspecified; R00.1 Bradycardia, unspecified; R20.0 Anesthesia of skin; Z90.89 Acquired absence of other organs; Z91.81 History of falling
CPT/HCPCS: 36415; 70450-TC; 80053; 80061; 81003; 82550; 82553; 83721; 83735; 84100; 84439; 84443; 84484; 85025; 85610; 85730; 93005; 93010; 99285-25; J1644

== ENCOUNTER 2023-07-04 14:54 | Emergency (ER) | payer BC, OTHER ==
[2023-07-04 15:02] VITALS: TEMP 98.4; BMI 25.0
[2023-07-04] MEDS ORDERED: KETOROLAC TROMETHAMINE 30 MG/1 ML VIAL ONE (16:10)
[2023-07-04] MEDS ORDERED: METHOCARBAMOL 500 MG TABLET ONE (16:10)
[2023-07-04] MEDS ORDERED: LIDOCAINE 4% PATCH TP ONE (16:10)
[2023-07-04] MEDS: LIDOCAINE 5% TOPICAL PATCH TP ONE (16:20)
[2023-07-04] MEDS: METHOCARBAMOL 750 MG TABLET PO ONE (16:21)
[2023-07-04] MEDS: KETOROLAC TROMETHAMINE 30 MG/1 ML VIAL IM ONE (16:21)
[2023-07-04 17:19] VITALS: BP 130/79; PULSE 78; RESP 18
[2023-07-04] MEDS ORDERED: LIDOCAINE PATCH REMOVAL MC SCH (22:00)
== END 2023-07-04 17:19 | disposition home or self-care (01) ==
LOC: JER 14:54
PROC: 3E0233Z Introduction of Anti-inflammatory into Muscle, Percutaneous Approach (ICD-10-PCS; principal; 2023-07-04)
DX: M25.512 Pain in left shoulder (principal)
CPT/HCPCS: 73030-TC-LT-FY; 93005; 93010; 99284-25